=== PATIENT | male | born 1995 | race Caucasian/White ===

== ENCOUNTER 2017-12-03 13:34 | Emergency (ER) | payer BC ==
[2017-12-03 13:39] VITALS: BMI 23.7
[2017-12-03 13:40] VITALS: BP 114/69
--- NOTE | 2017-12-03 14:18 | DR.GENAD ---
HPI - PCP Primary Care Physician: NFD - Complaint/Symptoms Chief Complaint Doctors Comments: Patient presents for evaluation due to influenza exposure last two weeks. He admits to congestion,cough and rhinorrhea. He admits to low grade temperature. He denies vomiting or diarrhea. He did not get the "flu" shot. Chief Complaint:: PATIENT HAS FLU LIKE SX FOR 2 WEEKS AND HAS NOT BEEN GETTING ANY BETTER. - Source History Provided: Patient - Mode of Arrival Mode of Arrival: Ambulatory - Timing Onset of Chief Complaint: 11/18/17 PMH - PMH Past Medical History: No Past Surgical History: Yes Surgical History: Appendectomy - Family History History of Family Medical Conditions: No - Social History Does patient currently use any type of tobacco product: No Have you used tobacco products in the last 12 months: No Type of Tobacco Use: None Does any household member use tobacco: Yes Alcohol Use: Rarely Do you use any recreational Drugs:: No Lives With: Family Lives Where: Home - infectious screening In the last 2 months have you had wt loss of >10#?: NO Have you had fever, night sweats or hemotysis?: No Have you traveled outside the country in the last 6 months?: No Isolation: Standard ROS - Review of Systems Eyes: No Symptoms Reported ENTM: Nose Discharge Respiratoy: Non-Productive Cough Cardiovascular: No Symptoms Reported Gastrointestinal/Abdominal: Nausea Genitourinary: No Symptoms Reported Neurological: Headache Musculoskeletal: No Symptoms Reported Integumentary: No Symptoms Reported Hematologic/Lymphatic: No Symptoms Reported Endocrine: No Symptoms Reported Psychiatric: No Symptoms Reported PE - Vital Signs Vitals: Temperature 98.9 F Pulse Rate 78 Respiratory Rate 16 Blood Pressure 114/69 O2 Sat by Pulse Oximetry 98 - General General Appearance: Alert, In No Apparent Distress - Head Head Exam: Normal Inspection, Atraumatic - Eyes Eye exam: Normal Appearance, PERRL, EOMI - ENT ENT Exam: Normal Exam External Ear Exam: Normal External Inspection TM/Canal Exam: Bilateral Normal Nose Exam: Other (mucoid rhinorrhea) Mouth Exam: Normal Inspection Throat Exam: Normal Inspection - Chest Chest Inspection: Normal Inspection - Respiratory Respiratory Exam: Normal Lung Sounds Bilat Respiratory Exam: Bilateral Clear to Auscultation - Cardiovascular Cardiovascular Exam: Regular Rate, Normal Rhythm - Abdominal Exam Abdominal Exam: Normal Inspection, Normal Bowel Sounds Abdominal Tenderness: negative: RUQ, RLQ, LUQ, LLQ, Epigastrium, Suprapubic, Diffuse, Mild, Moderate, Severe, Other - Extremities Extremities Exam: Normal Inspection - Back Back Exam: Normal Inspection - Neurologic Neurological Exam: Alert, Oriented X3, CN II-XII Intact - Psychiatric Psychiatric Exam: Normal Affect, Normal Mood - Skin Skin Exam: Warm, Dry Course - Reevaluation 1st: Unchanged ROR - Labs Reviewed Laboratory Results Reviewed?: Yes (influenza negative) Result Diagrams: 12/03/17 14:24 12/03/17 14:24 Laboratory: WBC 7.4 X10^3/uL (3.6-10.0) 12/03/17 14:24 RBC 5.08 X10^6/uL (4.7-6.0) 12/03/17 14:24 Hgb 15.4 g/dL (13.5-18.0) 12/03/17 14:24 Hct 44.4 % (42.0-54.0) 12/03/17 14:24 MCV 87.5 fL (80.0-100.0) 12/03/17 14:24 MCH 30.4 pg (27.0-34.0) 12/03/17 14:24 MCHC 34.8 g/dL (33.0-35.0) 12/03/17 14:24 RDW 13.6 % (11.6-16.5) 12/03/17 14:24 Plt Count 187 X10^3/uL (150.0-450.0) 12/03/17 14:24 MPV 9.8 fL (7.4-11.0) 12/03/17 14:24 Neut % 61.9 % (42.0-75.0) 12/03/17 14:24 Lymph % 24.1 % (21.0-51.0) 12/03/17 14:24 [place] % 8.4 % (0.0-13.0) 12/03/17 14:24 Eos % 4.8 % (0.9-2.9) H 12/03/17 14:24 Baso % 0.8 % (0.2-1.0) 12/03/17 14:24 Neut # 4.6 x10^3/uL (2.2-4.8) 12/03/17 14:24 Lymph # 1.8 X10^3/uL (1.3-2.9) 12/03/17 14:24 [place] # 0.6 x10^3/uL (0.3-0.8) 12/03/17 14:24 Eos # 0.4 x10^3/uL (0.0-0.2) H 12/03/17 14:24 Baso # 0.1 X10^3/uL (0.0-0.1) 12/03/17 14:24 Absolute Nucleated RBC 0.0 /100WBC 12/03/17 14:24 Sodium 143 mmol/L (136-145) 12/03/17 14:24 Corrected Sodium TNP 12/03/17 14:24 Potassium 4.3 mmol/L (3.5-5.1) 12/03/17 14:24 Chloride 106 mmol/L (98-107) 12/03/17 14:24 Carbon Dioxide 30.7 mmol/L (21-32) 12/03/17 14:24 BUN 12 mg/dL (7-18) 12/03/17 14:24 Creatinine 0.99 mg/dL (0.70-1.30) 12/03/17 14:24 Est GFR (MDRD) Af Amer > 60 (>60) 12/03/17 14:24 Est GFR (MDRD) Non-Af > 60 (>60) 12/03/17 14:24 Glucose 71 mg/dL (65-99) 12/03/17 14:24 Calcium 9.0 mg/dL (8.5-10.1) 12/03/17 14:24 Influenza Type A (PCR) Negative (NEGATIVE) 12/03/17 14:17 Influenza Type B (PCR) Negative (NEGATIVE) 12/03/17 14:17 - Diagnosis Discharge Problem: Upper respiratory infection Qualifiers: URI type: unspecified viral URI Qualified Code(s): J06.9 - Acute upper respiratory infection, unspecified - Discharge Plan Condition: Stable - Follow ups/Referrals Follow ups/Referrals: NFD,None [Primary Care Provider] - 3 days - Instructions
[2017-12-03 14:36] LABS: BASOPHILS # (AUTO) 0.1 X10^3/uL (0.0-0.1); BASOPHILS % (AUTO) 0.8 % (0.2-1.0); EOSINOPHILS # (AUTO) 0.4 x10^3/uL (0.0-0.2); EOSINOPHILS % (AUTO) 4.8 % (0.9-2.9); HEMATOCRIT 44.4 % (42.0-54.0); HEMOGLOBIN 15.4 g/dL (13.5-18.0); LYMPHOCYTES # (AUTO) 1.8 X10^3/uL (1.3-2.9); LYMPHOCYTES % (AUTO) 24.1 % (21.0-51.0); MEAN CORPUSCULAR HEMOGLOBIN 30.4 pg (27.0-34.0); MEAN CORPUSCULAR HGB CONC 34.8 g/dL (33.0-35.0); MEAN CORPUSCULAR VOLUME 87.5 fL (80.0-100.0); MEAN PLATELET VOLUME 9.8 fL (7.4-11.0); MONOCYTES # (AUTO) 0.6 x10^3/uL (0.3-0.8); MONOCYTES % (AUTO) 8.4 % (0.0-13.0); NEUTROPHILS # (AUTO) 4.6 x10^3/uL (2.2-4.8); NEUTROPHILS % (AUTO) 61.9 % (42.0-75.0); PLATELET COUNT 187 X10^3/uL (150.0-450.0); RED BLOOD COUNT 5.08 X10^6/uL (4.7-6.0); RED CELL DISTRIBUTION WIDTH 13.6 % (11.6-16.5); WHITE BLOOD COUNT 7.4 X10^3/uL (3.6-10.0)
[2017-12-03 14:39] LABS: BLOOD UREA NITROGEN 12 mg/dL (7-18); CARBON DIOXIDE 30.7 mmol/L (21-32); CHLORIDE 106 mmol/L (98-107); CREATININE 0.99 mg/dL (0.70-1.30); SODIUM 143 mmol/L (136-145); eGFR BLACK RACES > 60 (>60); eGFR NON BLACK RACES > 60 (>60)
== END 2017-12-03 15:26 | disposition home or self-care (01) ==
LOC: ER 13:58
DX: J06.9 Acute upper respiratory infection, unspecified (principal)
CPT/HCPCS: 36415; 80048; 85025; 87502; 99282